=== PATIENT | female | born 1990 | race American Indian/Alaskan Native ===

== ENCOUNTER 2018-12-28 13:17 | Emergency (ER) | payer OTHER ==
[~2018-12-28] VITALS: Ht 160 cm; Wt 70.8 kg
[~2018-12-28 13:17] MED LIST: CEFADROXIL250 MG/5 M PO; IMODIUM A-D2 MG PO; PEPCID40 MG PO; ZOFRAN4 MG PO
[2018-12-28] MEDS ORDERED: IRON325 MG (13:37)
== END 2018-12-28 19:19 | disposition home or self-care (01) ==
LOC: ER 13:17
DX: O20.0 Threatened abortion (principal)

== ENCOUNTER 2019-01-07 16:00 | Emergency (ER) | payer OTHER ==
[~2019-01-07] VITALS: Ht 160 cm; Wt 69.9 kg
[~2019-01-07 16:00] MED LIST changes: +IRON325 MG
== END 2019-01-07 22:47 | disposition home or self-care (01) ==
LOC: ER 16:00
DX: O02.1 Missed abortion (principal)

== ENCOUNTER 2019-01-18 12:20 | Emergency (ER) | payer OTHER ==
[~2019-01-18] VITALS: Ht 160 cm; Wt 70.8 kg
== END 2019-01-18 16:14 | disposition home or self-care (01) ==
LOC: ER 12:20
DX: N83.292 Other ovarian cyst, left side (principal); N93.8 Other specified abnormal uterine and vaginal bleeding